=== PATIENT | female | born 1960 | race Caucasian/White ===

== ENCOUNTER 2016-11-24 01:35 | Emergency (ER) | payer OTHER ==
[2016-11-24] MEDS ORDERED: Sodium Chloride 0.9% 1000 ML 1,000 ML IV STA (02:03)
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
[2016-11-24] MEDS ORDERED: Sodium Chloride 0.9% 1000 ML 1,000 ML ONE (02:12)
[2016-11-24 02:16] LABS: BASOPHIL % 0.6 % (0.0-0.4); Eosinophil % 2.3 % (0.00-5.0); Granulocytes % 71.6 % (36.0-66.0); Lymphocytes % 21.6 % (24.0-44.0); Mean Cell Volume 98.4 fl (78-100); Mean Corpuscular Hemoglobin 32.2 pg (26-32); Mean Platelet Volume 10.6 fl (6-9.5); Monocytes % 3.9 % (0.0-12.0); Platelet Count 575 K/mm3 (150-450); Red Blood Count 3.85 M/mm3 (4.1-5.4); Red Cell Distribution Width 14.6 % (11.5-14.0); White Blood Count 14.8 K/mm3 (4.0-10.5)
[2016-11-24 02:35] LABS: ANION GAP 18.2 MEQ/L (5-15); Carbon Dioxide 21.9 mEq/L (21-32); Potassium 3.7 mEq/L (3.5-5.1)
[2016-11-24 05:53] VITALS: O2SAT 96
[2016-11-24 06:18] VITALS: BP 100/56; PULSE 65
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
== END 2016-11-24 06:17 | disposition home or self-care (01) ==
LOC: ED 01:35
DX: S00.83XA Contusion of other part of head, initial encounter (principal); S16.1XXA Strain of muscle, fascia and tendon at neck level, initial encounter; R51 Headache; M54.2 Cervicalgia; Y04.0XXA Assault by unarmed brawl or fight, initial encounter; I10 Essential (primary) hypertension
CPT/HCPCS: 36000; 36415; 70450; 70486; 72125; 80048; 80307; 80320; 83986; 85025; 96360; 99284